=== PATIENT | male | born 1985 | race Caucasian/White ===

== ENCOUNTER 2019-07-22 21:21 | Emergency (ER) | payer MEDICAID ==
[~2019-07-22] VITALS: Ht 190.5 cm; Wt 63.0 kg
[~2019-07-22 21:21] MED LIST: KEPP500 PO; LIBRIUM; THIAMINE PO
[2019-07-22] MEDS ORDERED: ONDANSETRON HCL 4MG/2ML INJ IV STA (22:57)
[2019-07-22] MEDS ORDERED: MORPHINE SULFATE 4 MG/ML CPJ (NOT FOR IM USE) IV STA (22:57)
[2019-07-22] MEDS ORDERED: SODIUM CHLORIDE 0.9% 1,000 ML IV ONE (22:57)
[2019-07-22] MEDS ORDERED: LORAZEPAM 2MG/ML CPJ IV ONE (23:00)
[2019-07-22] MEDS ORDERED: FAMOTIDINE 20MG/2ML VIAL IV ONE (23:00)
[2019-07-22] MEDS ORDERED: MAGNESIUM/ALUMINUM HYDROXIDE/SIMETHICONE 30ML UDC PO ONE (23:00)
[2019-07-22 23:32] LABS: *AMPHETAMINES SCREEN URINE NEGATIVE (NEGATIVE); *BARBITURATES SCREEN URINE NEGATIVE (NEGATIVE); *BENZODIAZEPINES SCREEN URINE PRESUMTIVE POSITIVE (NEGATIVE); *COCAINE SCREEN URINE NEGATIVE (NEGATIVE)
[2019-07-22 23:33] LABS: CANNABINOID URINE SCREEN PRESUMTIVE POSITIVE (NEGATIVE); METHADONE URINE SCREEN NEGATIVE (NEGATIVE); OPIATES URINE SCREEN NEGATIVE (NEGATIVE); PHENCYCLIDINE URINE SCREEN NEGATIVE (NEGATIVE)
[2019-07-23 00:35] LABS: HEMATOCRIT. 46.4 % (42.0-52.0); MEAN CORPUSCULAR HEMOGLOBIN 35.1 pg (28.0-32.0); MEAN CORPUSCULAR VOLUME 101.7 fL (80.0-94.0); MEAN PLATELET VOLUME 8.2 fl (7.4-10.4); PLATELET 129 x1000/uL (130-400); RED BLOOD CELL COUNT 4.56 mill/uL (4.7-6.1); RED CELL DISTRIBUTION WIDTH 13.8 % (11.6-14.6)
[2019-07-23 00:42] LABS: CHLORIDE 104 mEq/L (98-107)
[2019-07-23 01:10] LABS: ETHANOL BLOOD 351 mg/dL
[2019-07-23] MEDS ORDERED: POTASSIUM CHLORIDE 20MEQ TABLET SR PO ONE (01:15)
[2019-07-23 02:27] LABS: PLATELET ESTIMATE NORMAL
[2019-07-23] MEDS ORDERED: LORAZEPAM 1MG TABLET PO ONE (07:45)
[2019-07-23 07:50] VITALS: BP 129/75
== END 2019-07-23 07:54 | disposition home or self-care (01) ==
LOC: ER 21:21
DX: K29.20 Alcoholic gastritis without bleeding (principal); F10.20 Alcohol dependence, uncomplicated; Y90.8 Blood alcohol level of 240 mg/100 ml or more; E87.6 Hypokalemia; F12.90 Cannabis use, unspecified, uncomplicated; F15.10 Other stimulant abuse, uncomplicated; F17.210 Nicotine dependence, cigarettes, uncomplicated
CPT/HCPCS: 36415; 71045; 80053; 80305; 80320; 83690; 84443; 84484; 85025; 93005; 96374; 96375; 99284; J2060; J2270; J3490; J7030; G0480

== ENCOUNTER 2019-07-25 10:36 | Emergency (ER) | payer MEDICAID ==
[~2019-07-25] VITALS: Ht 190.5 cm; Wt 61.0 kg
[2019-07-25 10:46] VITALS: BP 130/98
[2019-07-25] MEDS ORDERED: FOLIC ACID 1 MG, THIAMINE HCL 100 MG, MVI, ADULT NO.1 10 ML in DEXTROSE 5% WATER 1,000 ML IV ONE ×4 (11:15)
[2019-07-25] MEDS ORDERED: LORAZEPAM 2MG/ML CPJ IV STA (11:15)
[2019-07-25] MEDS ORDERED: SODIUM CHLORIDE 0.9% 1,000 ML IV ONE (11:15)
== END 2019-07-25 11:52 | disposition left against medical advice (07) ==
LOC: ER 10:36
DX: F10.239 Alcohol dependence with withdrawal, unspecified (principal); Y90.9 Presence of alcohol in blood, level not specified; R45.851 Suicidal ideations; Z63.4 Disappearance and death of family member
CPT/HCPCS: 99283; J3411; J3490; J7030; J7070; Z7610

== ENCOUNTER 2022-01-15 14:55 | Emergency (ER) | payer MEDICAID, OTHER ==
[~2022-01-15] VITALS: Ht 177.8 cm; Wt 75.0 kg
[~2022-01-15 14:55] MED LIST changes: +OMEP40CA20 MT
[2022-01-15 14:56] VITALS: BP 107/71
== END 2022-01-15 16:27 | disposition left against medical advice (07) ==
LOC: ER 14:55
DX: R53.1 Weakness (principal); Z53.21 Procedure and treatment not carried out due to patient leaving prior to being seen by health care provider
CPT/HCPCS: 93005; 99283

== ENCOUNTER 2022-01-15 16:38 | Inpatient (IN) | payer OTHER ==
[~2022-01-15] VITALS: Ht 190.5 cm; Wt 79.8 kg
[2022-01-15] MEDS ORDERED: FAMOTIDINE 20MG/2ML VIAL IV STA (18:07)
[2022-01-15] MEDS ORDERED: KETOROLAC 30MG/ML VIAL IV STA (18:07)
[2022-01-15] MEDS ORDERED: SODIUM CHLORIDE 0.9% 1,000 ML IV ONE (18:15)
[2022-01-15 19:34] LABS: HEMATOCRIT. 47.8 % (42.0-52.0); HEMOGLOBIN. 17.4 g/dL (14.0-18.0); MEAN CORPUSCULAR HEMOGLOBIN 35.1 pg (28.0-32.0); MEAN CORPUSCULAR VOLUME 96.4 fL (80.0-94.0); MEAN PLATELET VOLUME 7.9 fl (7.4-10.4); PLATELET 298 x1000/uL (130-400); RED BLOOD CELL COUNT 4.96 mill/uL (4.7-6.1); RED CELL DISTRIBUTION WIDTH 13.3 % (11.6-14.6)
[2022-01-15 19:35] LABS: CLARITY URINE CLOUDY (CLEAR); COLOR URINE DARK YELLOW (YELLOW); KETONES URINE 1+ (NEGATIVE); LEUKOCYTE ESTERASE URINE TRACE (NEGATIVE); NITRITE URINE NEGATIVE (NEGATIVE); OCCULT BLOOD URINE NEGATIVE (NEGATIVE); PH URINE >=9.0 (4.5-8.0); PROTEIN URINE 2+ (NEGATIVE); SPECIFIC GRAVITY URINE 1.025 (1.005-1.030)
[2022-01-15 19:51] LABS: CHLORIDE 87 mEq/L (98-107)
[2022-01-15] MEDS ORDERED: POTASSIUM CHLORIDE 20MEQ TABLET SR PO ONE (20:45)
[2022-01-15] MEDS ORDERED: CEFTRIAXONE 1 G PREMIX 50 ML IV ONE (20:45)
[2022-01-15] MEDS ORDERED: KCL 10MEQ/50ML PREMIX 50 ML IV ONE (20:45)
[2022-01-15 21:09] LABS: PLATELET ESTIMATE NORMAL
[2022-01-16] MEDS ORDERED: LORAZEPAM 2MG/ML CPJ IV ONE ×2 (01:00→03:15)
[2022-01-16 05:03] VITALS: BP 145/85
[2022-01-16] MEDS ORDERED: LORAZEPAM 2MG/ML CPJ IV PRN (07:30)
[2022-01-16 08:00] VITALS: BP 114/74
[2022-01-16] MEDS ORDERED: FOLIC ACID 1MG TABLET PO SCH (09:00)
[2022-01-16] MEDS ORDERED: MULTIVITAMINS,THER W-MINERALS TABLET PO SCH (09:00)
[2022-01-16] MEDS ORDERED: ACETAMINOPHEN 650MG SUPP PR PRN (09:15)
[2022-01-16] MEDS ORDERED: IPRATROPIUM/ALBUTEROL 0.5-3(2.5)MG/3ML NEB NEB PRN (09:15)
[2022-01-16] MEDS: THIAMINE HCL 100MG TABLET PO SCH (10:18)
[2022-01-16] MEDS: PANTOPRAZOLE SODIUM 40 MG/VIAL IV SCH (10:18)
[2022-01-16] MEDS ORDERED: MVI, ADULT NO.1 10 ML, FOLIC ACID 1 MG, THIAMINE HCL 100 MG in SODIUM CHLORIDE 0.9% 1,0... IV SCH ×4 (11:00)
[2022-01-16 11:16] LABS: BASOPHILS % 0.8 % (0.0-2.0); EOSINOPHILS % 0.5 % (0.0-5.0); HEMATOCRIT. 43.4 % (42.0-52.0); HEMOGLOBIN. 15.5 g/dL (14.0-18.0); LYMPHOCYTES % 12.2 % (20.0-50.0); MEAN CORPUSCULAR HEMOGLOBIN 34.8 pg (28.0-32.0); MEAN CORPUSCULAR VOLUME 97.3 fL (80.0-94.0); MEAN PLATELET VOLUME 7.9 fl (7.4-10.4); MONOCYTES % 9.6 % (2.0-8.0); NEUTROPHILS % 76.9 % (40.0-76.0); PLATELET 238 x1000/uL (130-400); RED BLOOD CELL COUNT 4.46 mill/uL (4.7-6.1); RED CELL DISTRIBUTION WIDTH 13.4 % (11.6-14.6)
[2022-01-16 11:21] LABS: CHLORIDE 91 mEq/L (98-107)
[2022-01-16 11:22] LABS: CHLORIDE 91 mEq/L (98-107)
[2022-01-16 11:23] LABS: INR 1.1; PROTHROMBIN TIME 11.3 sec (9.6-11.0)
[2022-01-16 11:28] LABS: ETHANOL BLOOD < 10 mg/dL
[2022-01-16 12:00] VITALS: BP 114/73
[2022-01-16] MEDS ORDERED: POTASSIUM CHLORIDE 20MEQ TABLET SR PO SCH (13:00)
[2022-01-16 13:51] LABS: HEPATITIS B SURFACE ANTIGEN NEGATIVE
[2022-01-16] MEDS: CHLORDIAZEPOXIDE 25MG CAPSULE PO SCH ×2 (13:53→22:04)
[2022-01-16] MEDS ORDERED: CHLORDIAZEPOXIDE 25MG CAPSULE PO SCH (14:00)
[2022-01-16] MEDS ORDERED: KCL 20MEQ/100ML PREMIX 100 ML IV SCH (15:00)
[2022-01-16 16:00] VITALS: BP 108/75
[2022-01-16 17:03] LABS: CHLORIDE 92 mEq/L (98-107)
[2022-01-16 17:12] LABS: CREATINE KINASE 470 IU/L (39-308)
[2022-01-16] MEDS ORDERED: DEXT 5%/0.45% NACL KCL 20MEQ/L 1,000 ML IV SCH (18:00)
[2022-01-16] MEDS ORDERED: POTASSIUM CHLORIDE 20MEQ TABLET SR PO NR ×2 (19:00→21:00)
[2022-01-16 20:00] VITALS: BP 114/75
[2022-01-16] MEDS: LEVETIRACETAM 500MG TABLET PO SCH (20:09)
[2022-01-17] VITALS (7 sets, daily range): BP systolic 101–135; BP diastolic 56–75
[2022-01-17 00:26] LABS: CREATINE KINASE 491 IU/L (39-308)
[2022-01-17] MEDS: LORAZEPAM 2MG/ML CPJ IV PRN (00:30)
[2022-01-17] MEDS: CHLORDIAZEPOXIDE 25MG CAPSULE PO SCH ×3 (05:53→21:52)
[2022-01-17 07:36] LABS: *AMPHETAMINES SCREEN URINE PRESUMTIVE POSITIVE (NEGATIVE); *BARBITURATES SCREEN URINE NEGATIVE (NEGATIVE); *BENZODIAZEPINES SCREEN URINE PRESUMTIVE POSITIVE (NEGATIVE); *COCAINE SCREEN URINE NEGATIVE (NEGATIVE); METHADONE URINE SCREEN NEGATIVE (NEGATIVE)
[2022-01-17 07:37] LABS: CANNABINOID URINE SCREEN PRESUMTIVE POSITIVE (NEGATIVE); OPIATES URINE SCREEN NEGATIVE (NEGATIVE); PHENCYCLIDINE URINE SCREEN NEGATIVE (NEGATIVE)
[2022-01-17 08:07] LABS: HIV SCREEN 4G Non Reactive (Non Reactive)
[2022-01-17] MEDS: MULTIVITAMINS,THER W-MINERALS TABLET PO SCH (08:46)
[2022-01-17] MEDS: FOLIC ACID 1MG TABLET PO SCH (08:46)
[2022-01-17] MEDS: THIAMINE HCL 100MG TABLET PO SCH (08:46)
[2022-01-17] MEDS: LEVETIRACETAM 500MG TABLET PO SCH ×2 (08:46→21:52)
[2022-01-17] MEDS ORDERED: THIAMINE HCL 100MG TABLET PO SCH (09:00)
[2022-01-17] MEDS: PANTOPRAZOLE SODIUM 40 MG/VIAL IV SCH (09:00)
[2022-01-17 10:14] LABS: BASOPHILS % 0.6 % (0.0-2.0); EOSINOPHILS % 2.1 % (0.0-5.0); HEMATOCRIT. 42.4 % (42.0-52.0); LYMPHOCYTES % 12.7 % (20.0-50.0); MEAN CORPUSCULAR HEMOGLOBIN 35.1 pg (28.0-32.0); MEAN CORPUSCULAR VOLUME 99.1 fL (80.0-94.0); MONOCYTES % 7.2 % (2.0-8.0); NEUTROPHILS % 77.4 % (40.0-76.0); RED BLOOD CELL COUNT 4.27 mill/uL (4.7-6.1); RED CELL DISTRIBUTION WIDTH 13.1 % (11.6-14.6)
[2022-01-17 10:17] LABS: CHLORIDE 101 mEq/L (98-107)
[2022-01-17] MEDS ORDERED: PANTOPRAZOLE 40MG DR TABLET PO NR (13:45)
[2022-01-18] VITALS: BP 122/80
[2022-01-18] MEDS: LORAZEPAM 2MG/ML CPJ IV PRN (01:22)
[2022-01-18 04:00] VITALS: BP 110/76
[2022-01-18] MEDS: CHLORDIAZEPOXIDE 25MG CAPSULE PO SCH ×2 (06:40→13:14)
[2022-01-18] MEDS: THIAMINE HCL 100MG TABLET PO SCH (07:58)
[2022-01-18] MEDS: LEVETIRACETAM 500MG TABLET PO SCH (07:58)
[2022-01-18] MEDS: FOLIC ACID 1MG TABLET PO SCH (07:58)
[2022-01-18] MEDS: MULTIVITAMINS,THER W-MINERALS TABLET PO SCH (07:58)
[2022-01-18 08:00] VITALS: BP 101/56
[2022-01-18] MEDS: PANTOPRAZOLE SODIUM 40 MG/VIAL IV SCH (09:00)
[2022-01-18] MEDS ORDERED: LORAZEPAM 1MG TABLET PO PRN (10:15)
[2022-01-18 10:22] LABS: BASOPHILS % 0.9 % (0.0-2.0); EOSINOPHILS % 2.9 % (0.0-5.0); HEMATOCRIT. 39.7 % (42.0-52.0); LYMPHOCYTES % 14.9 % (20.0-50.0); MEAN CORPUSCULAR HEMOGLOBIN 34.7 pg (28.0-32.0); MEAN CORPUSCULAR VOLUME 98.4 fL (80.0-94.0); MEAN PLATELET VOLUME 7.9 fl (7.4-10.4); MONOCYTES % 8.8 % (2.0-8.0); NEUTROPHILS % 72.5 % (40.0-76.0); PLATELET 194 x1000/uL (130-400); RED BLOOD CELL COUNT 4.03 mill/uL (4.7-6.1); RED CELL DISTRIBUTION WIDTH 12.7 % (11.6-14.6)
[2022-01-18 10:28] LABS: CHLORIDE 108 mEq/L (98-107)
[2022-01-18 12:00] VITALS: BP 110/58
[2022-01-18] MEDS ORDERED: THIA100T88 MT (12:22)
[2022-01-18] MEDS ORDERED: OMEP40CA20 MT (12:22)
[2022-01-19] MEDS ORDERED: FAMOTIDINE 20MG TABLET PO SCH (09:00)
== END 2022-01-18 14:10 | disposition home or self-care (01) | DRG 52 ==
LOC: ER 16:38 → 8WST 01-16 00:54 → ENRESERV 01-16 03:22
PROVIDERS: ADMIT Internal Medicine; ATTEND Internal Medicine
DX: G93.41 Metabolic encephalopathy (principal); E43 Unspecified severe protein-calorie malnutrition; K70.30 Alcoholic cirrhosis of liver without ascites; E03.9 Hypothyroidism, unspecified; F41.9 Anxiety disorder, unspecified; K59.00 Constipation, unspecified; K21.9 Gastro-esophageal reflux disease without esophagitis; K76.0 Fatty (change of) liver, not elsewhere classified; E05.90 Thyrotoxicosis, unspecified without thyrotoxic crisis or storm; N18.9 Chronic kidney disease, unspecified; G40.909 Epilepsy, unspecified, not intractable, without status epilepticus; F10.20 Alcohol dependence, uncomplicated; Z87.440 Personal history of urinary (tract) infections; Z79.899 Other long term (current) drug therapy; Z68.22 Body mass index [BMI] 22.0-22.9, adult
CPT/HCPCS: 36415; 71045; 74176; 80048; 80053; 80305; 80320; 81003; 82140; 82550; 83735; 83880; 84443; 85025; 86705; 86709; 86803; 87340; 87389; 99291; C1893; C9113; J0696; J1885; J2060; J3411; J3480; J3490; J7030; G0480